=== PATIENT | male | born 1995 ===

== ENCOUNTER 2022-04-04 13:13 | Emergency (ER) | payer SELFPAY ==
[2022-04-04] MEDS ORDERED: SODIUM CHLORIDE 0.9% 1000 ML 1,000 ML IV ONE (13:48)
[2022-04-04] MEDS ORDERED: MORPHINE 4 MG/1 ML INJ IV ONE (13:48)
[2022-04-04] MEDS ORDERED: ONDANSETRON 4 MG/2 ML INJ IV ONE (13:48)
[2022-04-04] MEDS ORDERED: ETOMIDATE 20 MG/10 ML INJ IV ONE (13:52)
--- NOTE | 2022-04-04 14:04 | XRay Report ---
XR shoulder 2+V RT INDICATION: shoulder pain. COMPARISON: None available. FINDINGS: There is an anterior glenohumeral joint dislocation. There is no appreciable fracture. Signer Name: Chetan Brennan MD Signed: 04/04/2022 1:59 PM Workstation Name: [id number]
--- NOTE | 2022-04-04 15:10 | XRay Report ---
RIGHT SHOULDER 2 VIEWS INDICATION: post reduction. COMPARISON: Earlier today at 1344 hours IMPRESSION: Previously described dislocation at the right glenohumeral joint has been reduced. No f racture or arthritic changes. Signer Name: Johnathan Guzmán Jr, MD Signed: 04/04/2022 3:05 PM Workstation Name: [id number]
[2022-04-04] MEDS ORDERED: HYDROcodone/ACETAMINOPHEN 5-325 MG TAB PO ONE (15:32)
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
[2022-04-04 19:00] VITALS: BP 123/65
== END 2022-04-05 05:14 | disposition home or self-care (01) ==
LOC: ED 13:13
DX: S43.004A Unspecified dislocation of right shoulder joint, initial encounter (principal); X58.XXXA Exposure to other specified factors, initial encounter; Y93.89 Activity, other specified; Y92.89 Other specified places as the place of occurrence of the external cause; Y99.8 Other external cause status
CPT/HCPCS: 23650; 73030; 96361; 96374; 96375; 99284; J2270; J2405; J3490; J7030